=== PATIENT | female | born 1985 | race Caucasian/White ===

== ENCOUNTER 2018-12-05 15:28 | Observation (INO) | payer OTHER, BC ==
[~2018-12-05] VITALS: Ht 157.5 cm; Wt 55.9 kg
[2018-12-05] MEDS ORDERED: LACTATED RINGERS 1,000 ML IV SCH (15:31)
[2018-12-05 15:51] VITALS: BP 108/69
[2018-12-05] MEDS ORDERED: SODIUM CITRATE/CITRIC ACID 30 ML UDC PO ONE (16:00)
[2018-12-05] MEDS ORDERED: METOCLOPRAMIDE 5 MG/ML, 2ML IVPush ONE (16:00)
[2018-12-05] MEDS ORDERED: SODIUM CITRATE/CITRIC ACID 30 ML UDC ONE (18:15)
[2018-12-05] MEDS ORDERED: METOCLOPRAMIDE 5 MG/ML, 2ML ONE (18:16)
[2018-12-05] MEDS ORDERED: CEFAZOLIN 1,000 MG ONE (18:50)
[2018-12-05] MEDS ORDERED: WATER-INJECTION,STERILE 10 ML IV ONE (18:50)
[2018-12-05] MEDS ORDERED: PROPOFOL 10 MG/ML, 20ML ONE (19:03)
[2018-12-05] MEDS ORDERED: ONDANSETRON 2MG/ML, 2ML IV PRN (20:30)
== END 2018-12-05 23:40 | disposition home or self-care (01) ==
LOC: LDOP 15:28 → LDIP 15:31
PROVIDERS: ADMIT Obstetrics & Gynecology Maternal & Fetal Medicine; ATTEND Obstetrics & Gynecology Maternal & Fetal Medicine
DX: O00.01 Abdominal pregnancy with intrauterine pregnancy (principal); Z3A.17 17 weeks gestation of pregnancy; Z23 Encounter for immunization
CPT/HCPCS: 36415; 59025; 85014; 85018; 90471; 90656; 96374; 99211; G0378; J0690; J2704; J2765; J7120; 96360; 96361; G0463